=== PATIENT | male | born 1995 | race Caucasian/White ===

== ENCOUNTER 2017-03-08 13:38 | Emergency (ER) | payer SELFPAY ==
[~2017-03-08] VITALS: Ht 157.5 cm; Wt 52.0 kg
[2017-03-08 13:41] VITALS: Ht 157.5 cm; Wt 52.0 kg
[2017-03-08] MEDS ORDERED: HYDR-906 PO (15:46)
[2017-03-08] MEDS ORDERED: CYCL-319 PO (15:47)
[2017-03-08] MEDS ORDERED: NAPR-260 PO (15:47)
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
[2017-03-08] MEDS ORDERED: NAPROXEN 500 MG TAB PO ONE (16:00)
[2017-03-08] MEDS ORDERED: IBUPROFEN 800 MG TAB PO ONE (16:00)
[2017-03-08 16:14] VITALS: BP 124/64; PULSE 81; RESP 18; TEMP 98.1
== END 2017-03-08 16:33 | disposition home or self-care (01) ==
LOC: FTE 13:38
DX: S19.9XXA Unspecified injury of neck, initial encounter (principal); S29.9XXA Unspecified injury of thorax, initial encounter; S89.92XA Unspecified injury of left lower leg, initial encounter; V49.50XA Passenger injured in collision with unspecified motor vehicles in traffic accident, initial encounter
CPT/HCPCS: 99284